=== PATIENT | male | born 1960 | race Asian ===

== ENCOUNTER 2021-10-06 14:22 | Emergency (ER) | payer OTHER ==
[~2021-10-06] VITALS: Ht 170.2 cm; Wt 72.6 kg
[2021-10-06 14:32] VITALS: BP 108/69; TEMP 99.1
== END 2021-10-06 15:43 | disposition home or self-care (01) ==
LOC: ED 14:22
DX: Z53.21 Procedure and treatment not carried out due to patient leaving prior to being seen by health care provider (principal); M25.561 Pain in right knee; W19.XXXA Unspecified fall, initial encounter; Y92.009 Unspecified place in unspecified non-institutional (private) residence as the place of occurrence of the external cause
CPT/HCPCS: 99281

== ENCOUNTER 2022-02-14 12:28 | Emergency (ER) | payer OTHER ==
[~2022-02-14] VITALS: Ht 170.2 cm; Wt 72.6 kg
[2022-02-14 12:40] VITALS: TEMP 97.7
[2022-02-14 14:11] LABS: PLATELET COUNT 279 K/uL (142-355)
[2022-02-14 14:14] LABS: POTASSIUM 3.4 mmol/L (3.6-5.2)
[2022-02-14 14:28] LABS: PARTIAL THROMBOPLASTIN TIME 30.3 SECONDS (24.5-33.6)
[2022-02-14 16:00] VITALS: BP 118/76
== END 2022-02-14 16:47 | disposition home or self-care (01) ==
LOC: ED 12:28
PROVIDERS: Emergency Medicine
DX: K86.1 Other chronic pancreatitis (principal); R18.8 Other ascites; Z53.29 Procedure and treatment not carried out because of patient's decision for other reasons; R60.0 Localized edema; Z20.822 Contact with and (suspected) exposure to COVID-19
CPT/HCPCS: 36415; 80053; 80320; 82150; 83690; 83880; 85027; 85610; 85730; 87635; 99283; Q9963; U0003